=== PATIENT | male | born 1980 | race Caucasian/White ===

== ENCOUNTER 2020-07-06 17:12 | Emergency (ER) | payer OTHER ==
[~2020-07-06] VITALS: Ht 188 cm; Wt 145.0 kg
[2020-07-06 17:15] VITALS: BP 160/103
--- NOTE | 2020-07-06 17:34 | PHYS DOC ---
General Adult HPI: HPI: Patient is a 40-year-old male who presents after he was hammering a piece of metal at work and a piece flew off and hit him in the left side of his cheek. Patient denies pain. Bleeding is controlled. Patient is up-to-date on immunizations. Review of Systems: Review of Systems: Constitutional: Denies fever or chills Eyes: Denies change in visual acuity HENT: Denies nasal congestion or sore throat Respiratory: Denies cough or shortness of breath Cardiovascular: Denies chest pain or edema GI: Denies abdominal pain, nausea, vomiting, bloody stools or diarrhea : Denies dysuria Musculoskeletal: Denies back pain or joint pain Integument: Abrasion left cheek Neurologic: Denies headache, focal weakness or sensory changes Endocrine: Denies polyuria or polydipsia Lymphatic: Denies swollen glands Psychiatric: Denies depression or anxiety Physical Exam: PE: Constitutional: Well developed, well nourished, no acute distress, non-toxic appearance. [] HENT: Normocephalic, atraumatic, bilateral external ears normal, oropharynx moist, no oral exudates, nose normal. [] Eyes: PERRLA, EOMI, conjunctiva normal, no discharge. [] Neck: Normal range of motion, no tenderness, supple, no stridor. [] Cardiovascular:Heart rate regular rhythm, no murmur [] Lungs & Thorax: Bilateral breath sounds clear to auscultation [] Abdomen: Bowel sounds normal, soft, no tenderness, no masses, no pulsatile masses. [] Skin: Dry, abrasion, red, left cheek Back: No tenderness, no CVA tenderness. [] Extremities: No tenderness, no cyanosis, no clubbing, ROM intact, no edema. [] Neurologic: Alert and oriented X 3, normal motor function, normal sensory function, no focal deficits noted. [] Psychologic: Affect normal, judgement normal, mood normal. [] EKG: EKG: [] Radiology/Procedures: Radiology/Procedures: [] Heart Score: C/O Chest Pain: No Risk Factors: Risk Factors: DM, Current or recent (<one month) smoker, HTN, HLP, family history of CAD, obesity. Risk Scores: Score 0 - 3: 2.5% MACE over next 6 weeks - Discharge Home Score 4 - 6: 20.3% MACE over next 6 weeks - Admit for Clinical Observation Score 7 - 10: 72.7% MACE over next 6 weeks - Early Invasive Strategies Course & Med Decision Making: Course & Med Decision Making Pertinent Labs and Imaging studies reviewed. (See chart for details) [] Patient is being seen for a piece of metal that went to the left side of his cheek. It is a small abrasion. Unable to visualize any foreign body in his left cheek. Scab has already formed over the abrasion. Patient is up-to-date on tetanus. Dragon Disclaimer: [employer] Disclaimer: This electronic medical record was generated, in whole or in part, using a voice recognition dictation system. Departure Departure: Impression: Primary Impression: Abrasion, face w/o infection Disposition: HOME / SELF CARE / HOMELESS Condition: STABLE Referrals: PCP,NO (PCP) Patient Instructions: Abrasion, [id number] Additional Instructions: You were seen in the emergency room after a piece of metal went into your left cheek. The abrasion has already formed a scab and I am unable to visualize any foreign object. Your tetanus is up-to-date. You have worsening pain, fever, or complications please return to the emergency room. Otherwise follow-up with your PCP for further management. EMERGENCY DEPARTMENT GENERAL DISCHARGE INSTRUCTIONS Thank you for coming to [facility] (ED) today and trusting us with you care. We trust that you had a positivie experience in our Emergency Department. If you wish to speak to the department management, you may call the director at [phone]. YOUR FOLLOW UP INSTRUCTIONS ARE FOLLOWS: 1. Do you have a private Doctor? If you do not have a private doctor, please ask for a resource list of physicians or clinics that may be able to assist you with follow up care. 2. The Emergency Physician has interpreted your x-rays. The X-Ray specialist will also review them. If there is a change in the findings, you will be notified in 48 hours when at all possible. 3. A lab test or culture has been done, your results will be reviewed and you will be notified if you need a change in treatment. ADDITIONAL INSTRUCTIONS AND INFORMATION: 1. Your care today has been supervised by a physician who is specially trained in emergency care. Many problems require more than one evaluation for a complete diagnosis and treatment. We recommend that you schedule your follow up appointment as recommended to ensure complete treatment of you illness or injury. If you are unable to obtain follow up care and continue to have a problem, or if your condition worsens, we recommend that you return to the ED. 2. We are not able to safely determine your condition over the phone nor are we able to give sound medical advice over the phone. For these safety reasons, if you call for medical advice we will ask you to come to the ED for further evaluation. 3. If you have any questions regarding these discharge instructions please call the ED at [phone]. SAFETY INFORMATION: In the interest of safety, wellness, and injury prevention; we encourage you to wear your sealbelt, if you smoke; quite smoking, and we encourage family to use a protective helmet for bicycling and other sporting events that present an increased risk for head injury. IF YOUR SYMPTOMS WORSEN OR NEW SYMPTOMS DEVELOP, OR YOU HAVE CONCERNS ABOUT YOUR CONDITION; OR IF YOUR CONDITION WORSENS WHILE YOU ARE WAITING FOR YOUR FOLLOW UP APPOINTMENT; EITHER CONTACT YOUR PRIMARY CARE DOCTOR, THE PHYSICIAN WHOSE NAME AND NUMBER YOU WERE GIVEN, OR RETURN TO THE ED IMMEDIATELY. RAJINDER LAZO APRN Jul 06, 2020 17:34
== END 2020-07-06 18:46 | disposition home or self-care (01) ==
LOC: ER 17:12
DX: S00.81XA Abrasion of other part of head, initial encounter (principal); W22.8XXA Striking against or struck by other objects, initial encounter; Y93.89 Activity, other specified; Y92.89 Other specified places as the place of occurrence of the external cause; Y99.8 Other external cause status
CPT/HCPCS: 99281

== ENCOUNTER 2020-10-11 12:33 | Emergency (ER) | payer OTHER ==
[~2020-10-11] VITALS: Ht 188 cm; Wt 152.6 kg
[2020-10-11 12:48] VITALS: BP 157/98
[2020-10-11] MEDS ORDERED: KETOROLAC 15 MG/ML VIAL. IM ONE (13:00)
[2020-10-11] MEDS ORDERED: IOHEXOL 300 MG/ML 75 ML VIAL. IV ONE (13:15)
[2020-10-11] MEDS ORDERED: CONTRAST GIVEN. MC PRN (13:15)
--- NOTE | 2020-10-11 13:26 | PHYS DOC ---
Past History Past Medical History: No Pertinent History Past Surgical History: Appendectomy Additional Past Surgical Histo: UMBILICAL HERNIA REPAIR, MINISCUS REPAIR Alcohol Use: None Drug Use: None General Adult EDM: Chief Complaint: FACE PROBLEM Problems: (1) Facial swelling HPI: HPI: 40-year-old male presents to the emergency department complaining of right-sided facial swelling and pain for the last several days that is gradually increased in severity. He reports increased pain with opening and closing his mouth. Increased pain with palpation of the right side of his face adjacent to the angle of the mandible. He has not noticed any palliative factors at home. This is never happened before. He has no symptoms in the left side of his face. Denies any recent illness. The patient denies nausea, vomiting, fever, chills, chest pain, shortness of breath, abdominal pain, cough, recent trauma, recent dental procedures, tooth pain or any other complaints. Review of Systems: Review of Systems: Constitutional: Denies fever or chills. Eyes: Denies change in vision, pain. HENT: Admits to facial pain, denies dental pain. Respiratory: Denies cough or shortness of breath. Cardiovascular: Denies chest pain or edema. GI: Denies abdominal pain, nausea. Musculoskeletal: Denies extremity pain, or trauma. Skin: Denies rash, skin change. Neurologic: Denies headache, focal weakness. Psychiatric: Denies depression or anxiety. All other systems reviewed as negative except for what was mentioned in the HPI. Family History: Family History: Noncontributory Current Medications: Current Meds: Current Medications Medications (Trade) Dose Ordered Sig/[facility] Start Time Stop Time Status Last Admin Dose Admin Info (Do NOT chart on this entry -- for MONITORING) 1 each PRN DAILY PRN 10/11/20 13:15 10/13/20 13:14 Iohexol (Omnipaque 300 Mg/ml) 75 ml 1X ONCE 10/11/20 13:15 10/11/20 13:16 DC Ketorolac Tromethamine (Toradol 15mg Vial) 15 mg 1X ONCE 10/11/20 13:00 10/11/20 13:03 DC 10/11/20 13:16 15 MG Allergies: Allergies: Allergies Coded Allergies Type Severity Reaction Last Updated Verified No Known Drug Allergies 10/11/20 No Physical Exam: PE: Constitutional: No acute distress, non-toxic appearance. HENT: Swelling is appreciated to the right side of the face adjacent to the angle of the mandible, there is slight erythema there is tenderness palpation around this area. There is no floor the mouth tenderness, there is no submandibular tenderness, uvula is midline, there is no dental lesions, teeth are all intact dentition is overall good Eyes: PERRLA, EOMI, conjunctiva normal, no discharge. Neck: Normal range of motion, supple, no stridor. Cardiovascular: Heart rate regular rhythm. 2+ radial pulses Lungs & Thorax: No respiratory distress, symmetrical expansion. Bilateral breath sounds clear to auscultation Skin: Warm, dry. Extremities: No tenderness, no cyanosis, ROM intact, no edema. Neurologic: Alert and oriented X 3, normal motor function, normal sensory function, no focal deficits noted. Non ataxic gait. GCS 15. Psychologic: Affect normal, judgment normal, mood normal. Current Patient Data: Vital Signs: Vital Signs Date Time Temp Pulse Resp B/P (MAP) Pulse Ox O2 Delivery O2 Flow Rate FiO2 10/11/20 12:48 98.1 68 20 157/98 98 Room Air Radiology/Procedures: Radiology/Procedures: CT study of the maxillofacial bones with contrast Clinical indications: Right-sided facial swelling. TECHNIQUE: After IV infusion of 75 cc of Omnipaque 300, helical CT scanning of the maxillofacial bones was performed. Multiplanar 2-D reconstructions were generated. PQRS compliance Statement One or more of the following individualized dose reduction techniques were utilized for this study: 1. Automated exposure control 2. Adjustment of the mA and/or kV according to patient size 3. Use of iterative reconstruction technique FINDINGS: The submandibular and parotid salivary glands are unremarkable. Cervical lymph nodes are seen bilaterally in the internal jugular chain area. On the left side, the largest lymph node measures 19 mm transversely and on the right side, largest lymph node measures 18 mm transversely. There is a metallic foreign body within the left cheek area measuring 5 mm. No significant inflammation is seen here and no fluid collection or abscess is seen here. Within the right side of the face, there is mild subcutaneous soft tissue edema without abscess or fluid collection. There is an accessory right parotid gland seen just lateral to the right masseter muscle. There are small lipomas of the f acial area on both sides measuring 25 mm on the right side and 29 mm on the left side. The orbits are symmetric without intraconal or extraconal soft tissue edema/mass or hematoma. The paranasal sinuses are clear without air-fluid level. The mastoid sinuses and middle ear cavities are clear. No lytic process is seen. There is caries involving the lower left second incisor anteriorly. Mild symmetrical enlargement of the palatine tonsils bilaterally. Small tonsillar stones are seen bilaterally. No intratonsillar or peritonsillar soft tissue abscess is seen. No adenoid enlargement is seen. IMPRESSION: Mild soft tissue edema of the right face. No soft tissue abscess is evident. Bilateral facial lipomas. Caries involving the lower second incisor tooth. Mild symmetrical enlargement of the palatine tonsils bilaterally. Small tonsillar stones are seen bilaterally. No intratonsillar or peritonsillar soft tissue abscess is seen. Bilateral internal jugular chain lymph nodes which may be reactive in nature. Small metallic foreign body within the left cheek measuring 5 mm. Electronically signed by: Chukc Benton MD (10/11/2020 1:53 PM) [id number] Heart Score: C/O Chest Pain: No Course & Med Decision Making: Course & Med Decision Making CT scan as above, does not show deep abscess or signs of proctitis. We will treat the patient for a right facial cellulitis with Keflex. He was advised to return if he has trouble breathing, progression of symptoms, inability to take p.o. or any further symptoms he would deem appropriate for reevaluation Departure Departure: Impression: Primary Impression: Cellulitis, face Disposition: 01 HOME / SELF CARE / HOMELESS Condition: STABLE Referrals: PCP,NO (PCP) Patient Instructions: Cellulitis, [id number] Additional Instructions: You were seen for a skin infection called cellulitis. You should jaswinder the area of redness when you get home. If your redness spreads past the marked area at 24 hours you should have it evaluated again. You do not have a focused area of infection called an abscess right now, but you could develop one. If so you will need to have it drained. You should return to the ED immediately if you develop worsening pain, fever, swelling, redness, drainage, any sign of abscess, or any other new or concerning symptoms. Take the entire course of antibiotics as prescribed. You have been given a prescription for Keflex this medicine is an antibiotic for cellulitis. Please take as prescribed for the full course of the prescription. Do not stop taking the medicine early if you feel better, as this could risk building antibiotic resistance and may put you at risk for a more harmful infection later. The most common side effect of antibiotics include nausea, vomiting, diarrhea and rash. Please come to be evaluated if you develop any symptoms that are concerning to you. One major adverse effect of antibiotics is the development of a diarrheal illness called c. diff colitis, if you develop an excessive amount of diarrhea or are concerned about this please return to the ER or consult a ph ysician. Scripts Cephalexin (CEPHALEXIN) 500 Mg Capsule 1 CAP PO BID for cellulitis for 7 Days, #14 CAP Prov: SUSANNA PAUL DO 10/11/20 SUSANNA PAUL DO Oct 11, 2020 13:26
[2020-10-11] MEDS ORDERED: IV NORMAL SALINE 1,000ML 1,000 ML IV ONE (13:30)
--- NOTE | 2020-10-11 13:55 | RAD ---
CT study of the maxillofacial bones with contrast Clinical indications: Right-sided facial swelling. TECHNIQUE: After IV infusion of 75 cc of Omnipaque 300, helical CT scanning of the maxillofacial bone s was performed. Multiplanar 2-D reconstructions were generated. PQRS compliance Statement One or more of the following individualized dose reduction techniques were utilized for this study: 1. Automated exposure control 2. Adjustment of the mA and/or kV according to patient size 3. Use of iterative reconstruction technique FINDINGS: The submandibular and parotid salivary glands are unremarkable. Cervical lymph nodes are se en bilaterally in the internal jugular chain area. On the left side, the largest lymph node measures 19 mm transversely and on the right side, largest lymph node measures 18 mm transversely. There is a metallic foreign body within the left cheek area measuring 5 mm. No significant inflammation is seen here and no fluid collection or abscess is seen here. Within the right side of the face, there is mil d subcutaneous soft tissue edema without abscess or fluid collection. There is an accessory right par otid gland seen just lateral to the right masseter muscle. There are small lipomas of the facial area on both sides measuring 25 mm on the right side and 29 mm on the left side. The orbits are symmetric without intraconal or extraconal soft tissue edema/mass or hematoma. The paranasal sinuses are clear without air-fluid level. The mastoid sinuses and middle ear cavities are clear. No lytic process is seen. There is caries involving the lower left second incisor anteriorly. Mild symmetrical enlargemen t of the palatine tonsils bilaterally. Small tonsillar stones are seen bilaterally. No intratonsillar or peritonsillar soft tissue abscess is seen. No adenoid enlargement is seen. IMPRESSION: Mild soft tissue edema of the right face. No soft tissue abscess is evident. Bilateral facial lipomas. Caries involving the lower second incisor tooth. Mild symmetrical enlargement of the palatine tonsils bilaterally. Small tonsillar stones are seen kenneth aterally. No intratonsillar or peritonsillar soft tissue abscess is seen. Bilateral internal jugular chain lymph nodes which may be reactive in nature. Small metallic foreign body within the left cheek measuring 5 mm. Electronically signed by: Chuck Benton MD (10/11/2020 1:53 PM) [id number]
[2020-10-11] MEDS ORDERED: CEPH500C PO (14:09)
== END 2020-10-11 14:14 | disposition home or self-care (01) ==
LOC: ER 12:33
DX: L03.211 Cellulitis of face (principal)
CPT/HCPCS: 70487; 96360; 96372; 99285; J1885; J7030